=== PATIENT | female | born 1995 ===

== ENCOUNTER 2018-06-26 03:01 | Inpatient (IN) | payer OTHER ==
[2018-06-26 03:34] VITALS: BMI 25.8
[2018-06-26] MEDS ORDERED: Acetaminophen 500 MG TAB PO SCH (04:15)
[2018-06-26 04:17] LABS: Amnisure Internal Control QC ACCEPTABLE (ACCEPTABLE); Amnisure Test RUPTURE DETECTED (No Rupture)
[2018-06-26] MEDS ORDERED: Docusate 100 MG CAP PO PRN (04:22)
[2018-06-26] MEDS ORDERED: Promethazine HCl 25 MG/ML VIAL IM PRN (04:22)
[2018-06-26] MEDS ORDERED: Ondansetron PF 4 MG/2 ML Vial IVP PRN ×2 (04:22→13:27)
[2018-06-26] MEDS ORDERED: Lidocaine 1% (PF) 30 ML VIAL SC PRN (04:27)
[2018-06-26] MEDS ORDERED: NS / Oxytocin 40 units/1000ml 1,000 ML IV PRN (04:27)
[2018-06-26] MEDS ORDERED: Ibuprofen 800 MG TAB PO PRN (04:27)
[2018-06-26] MEDS: Lactated Ringer's 1,000 ML IV SCH ×2 (04:30→12:48)
--- NOTE | 2018-06-26 04:32 | PDOC.FPROB ---
FMR OB H&P: HPI - History of Present Illness Chief Complaint: Leaking of fluid Indentification: 23 year old at 39.2 wks History of Present Illness: 23 year old at 39.2 wks presents with leaking of fluid since 1:27 this AM. She states she was having difficulty sleeping, so she decided to take Hydroxyzine. Just before she was about to doze off, she started to feel fluid leaking out. The fluid was clear and color initially and has since transitioned to a dark brown color. Patient endorses few irregular contractions. She endorses movement, although she does state it is slightly less than normal. she denies vaginal discharge. Patient endorses dull headache currently that has been present since late last night. She has not taken anything for the pain. Patient scheduled for cytotec induction tomorrow afternoon. Primary Care Physician: Shen FMR OB H&P: Current - Care : 1 Para: 0 Gestational age: 39.2 wks Due date: 07/01/2018 Dating Criteria: 1T ultrasound - OB Labs Blood type: A RH: positive Antibody Screen: negative HIV: negative RPR: negative HepBsAg: negative Rubella: immune Gonorrhea: negative Chlamydia: negative Pap Smear: nml 2018 1 hour gtt: 73 GBS: negative FMR OB H&P: History - Past Medical History PMH: Depression - OB History OB History: Initial concern for asymmetric IUGR; however, per patient report repeat ultrasound was fine. - Surgical History Sx History: L5-S1 spinal fusion Breast augmentation Taylor teeth removal - Social History Social History: Denies alcohol, tobacco, or drug use - Family History Family History: HTN mother and father FMR OB H&P: Medications - Current Home Medications: Medication Instructions Recorded Confirmed Type Cyclobenzaprine [Flexeril] 10 mg PO TID PRN 06/26/18 06/26/18 History HYDROcodone Bit/APAP 5/325 [[place] 1 tab PO Q6HR PRN 06/26/18 06/26/18 History 5/325] Vit 108/Iron/Folic AC 1 tablet PO DAILY 06/26/18 06/26/18 History [ One Tablet] Sertraline HCl [Zoloft] 50 mg PO DAILY 06/26/18 06/26/18 History hydrOXYzine Pamoate [Vistaril] 1 cap PO DAILY PRN 06/26/18 06/26/18 History Allergies/Adverse Reactions: Allergies Allergy/AdvReac Type Severity Reaction Status Date / Time oxycodone Allergy Intermediate Short of Verified 06/26/18 03:24 Breath FMR OB H&P: ROS - Review of Systems General: denies: fever/chills, weight/appetite/sleep changes Eyes: denies: vision changes, scotomas ENT: denies: nasal congestion, rhinorrhea, sore throat Cardiovascular: denies: chest pain, palpitation, edema Respiratory: denies: cough, congestion, shortness of breath Gastrointestinal: denies: abdominal pain, nausea, vomiting, diarrhea Genitourinary (Female): reports: polyuria, contractions. denies: incontinence, dysuria, vaginal discharge, vaginal pain, vaginal bleeding, vaginal pressure Musculoskeletal: reports: pain, stiffness Neurologic: denies: syncope, seizures, weakness Integumentary: denies: rash, lesions Hematologic/Lymphatic: denies: prolonged or excessive bleeding Psychological: reports: depression. denies: anxiety FMR OB H&P: Vital Signs - Maternal Vital signs: Vital Signs - First Documented Temp Pulse Resp BP 98.9 F 89 18 134/96 H 06/26/18 03:20 06/26/18 03:20 06/26/18 03:20 06/26/18 03:20 - Heart Tones Baseline: 150 Variability: moderate Acceleration: present Deceleration: absent Category: category 1 [place] contractions every: q3-4 min FMR OB H&P: Physical Exam - Physical Exam General: NAD, awake, alert and oriented HEENT: MMM Neck: supple Heart: RRR General: no respiratory distress Abdomen: soft, gravid, non-tender Musculoskeletal: pulses present Neurological: no tremor, no focal deficit Skin: no rash, capillary refill <2 seconds Lymphatic: no unusual bruising or bleeding Psychiatric: intact recent and remote memory, good judgement and insight, normal mood and affect - Pelvic Exam Vulva: no masses, no lesions, no discharge, no blood SVE: closed/thick/high FMR OB H&P: Results - Labs Lab results: Laboratory Results - last 24 hr 06/26/18 03:47 Amnio Swab Test RUPTURE DETECTED H FMR OB H&P: A/P - Problem List (1) PROM (premature rupture of membranes) Current Visit: Yes Status: Acute Code(s): O42.90 - HAYDER ROM, 7TH0 BETW RUPT & ONST LABR, UNSP WEEKS OF GEST (2) Term Current Visit: Yes Status: Acute Code(s): Z34.80 - ENCOUNTER FOR SUPRVSN OF NORMAL , UNSP TRIMESTER (3) Elevated BP without diagnosis of hypertension Current Visit: Yes Status: Acute Code(s): R03.0 - ELEVATED BLOOD-PRESSURE READING, W/O DIAGNOSIS OF HTN Disposition: Stable. Admit to L&D. 23 year old at 39.2 wks 1. Pre-labor rupture of membranes - At 1:27 AM - Positive amnisure - Admit to L&D for expectant management - Cervical check closed/thick/high - Repeat cervical exam in 2-4 hours; consider augmentation if no change - NST reactive 2. Term sIUP - See plan as above - GBS negative 3. Elevated BP without diagnosis of gHTN or cHTN - Several recorded values >140/90 (none >160/90) - No history of elevated BP during this - Will send for pre-E labs - Continue to monitor BP; initiate BP control for BP >160/90 Discussion: Date/Time: 06/26/18 0430 This H&P was discussed with Dr. Nava who agrees with the above documentation and plan. Signature: Samantha Koenig, PGY-2
[2018-06-26 05:02] LABS: Hemoglobin 10.6 g/dL (12.0-16.0); Mean Corpuscular HGB CONC 33.6 g/dL (32.0-36.0); Mean Corpuscular Hemoglobin 31.4 pg (27.0-31.0); Mean Corpuscular Volume 93.5 fL (78.0-98.0); Mean Platelet Volume 9.5 fL (7.4-10.4); Platelet Count 232 thou/uL (130-400); RBC Distribution Width 11.6 % (11.5-14.5); Red Blood Cell (RBC) Count 3.36 mill/uL (4.20-5.40); White Blood Cell (WBC) Count 9.9 thou/uL (4.8-10.8)
[2018-06-26 05:18] LABS: ALT (SGPT) 11 U/L (8-55); AST (SGOT) 19 U/L (5-34); Albumin 3.5 g/dL (3.5-5.0); Alkaline Phosphatase 120 U/L (40-150); Anion Gap 14 mmol/L (10-20); BUN (Urea Nitrogen) 12 mg/dL (7.0-18.7); Bilirubin, Total 0.5 mg/dL (0.2-1.2); Calc. Creatinine Clearance 116 mL/min (70-130); Calcium 9.1 mg/dL (7.8-10.44); Carbon Dioxide 19 mmol/L (22-29); Chloride 105 mmol/L (98-107); Estimated GFR-MDRD Greater than 90; Glucose 81 mg/dL (70-105); Potassium 4.4 mmol/L (3.5-5.1); Protein, Total 6.5 g/dL (6.0-8.3); Sodium 134 mmol/L (136-145)
[2018-06-26 05:36] LABS: HBSAg Index 0.19 S/CO (0-0.99); Hep B Surf Ag Non-Reactive S/CO (NonReactive); Syphilis Antibody Nonreactive (Nonreactive); Syphilis Antibody Index 0.02 S/CO (<1.00 Non-Reactive)
[2018-06-26 05:49] LABS: Creatinine, Urine 92.39 mg/dL (47-110)
--- NOTE | 2018-06-26 06:59 | PDOC.EVN ---
Event Note - Event Note Event Note: SROM since 1:30 AM. Patient with irregular contractions. Closed/thick/high at last check. Spoke to Dr. Gotti, plan to recheck and augment labor with pitocin. BP has been elevated. Pre-E labs negative. Continue to monitor BP. Samantha Koenig, DO PGY-2
[2018-06-26] MEDS: NS w/ Oxytocin 10 units 500 ML IV SCH ×2 (07:18→22:31)
[2018-06-26] MEDS: Dextrose 5%-Lactated Ringers 1,000 ML IV SCH ×2 (08:14→19:46)
[2018-06-26] MEDS: Fentanyl 100 MCG/2 ML VIAL SLOW IVP SCH ×5 (08:23→13:33)
[2018-06-26] MEDS ORDERED: Bupivacaine/Epinephrine 0.25% 30 ML VIAL ONE (09:00)
[2018-06-26] MEDS ORDERED: Lidocaine 2% MPF 10 ML AMP (For Epidural Use) ONE (09:00)
[2018-06-26] MEDS: Misoprostol 100 MCG TAB PO PRN ×3 (09:38→16:32)
[2018-06-26] MEDS ORDERED: Oxytocin 10 UNITS/ML VIAL ONE ×2 (11:00→11:44)
[2018-06-26] MEDS ORDERED: Fentanyl 4 mcg/Bup 0.1% Cadd 100 ML ONE ×2 (12:35→19:52)
[2018-06-26] MEDS ORDERED: Fentanyl 100 MCG/2 ML VIAL ONE (13:14)
[2018-06-26] MEDS ORDERED: Lactated Ringer's 500 ML IV PRN (13:27)
[2018-06-26] MEDS ORDERED: ePHEDrine/0.9% NaCl/PF SYRINGE 50 mg/10 ml SLOW IVP PRN (13:27)
[2018-06-26] MEDS ORDERED: Naloxone HCl 0.4 mg/ml Vial IVP PRN ×2 (13:27)
[2018-06-26] MEDS ORDERED: Eucerin (Mineral Oil/Petrolatum,White) 30 gm Jar TOP PRN (13:27)
[2018-06-26] MEDS ORDERED: Communication Order-Pharmacy FS SCH (13:30)
[2018-06-26] MEDS: diphenhydrAMINE 50 MG/ML VIAL IVP PRN ×3 (15:32→22:31)
[2018-06-26] MEDS: Fentanyl 4 mcg/Bupivacaine 0.1% Cassette 100 ML EPIDURAL SCH (19:53)
[2018-06-27] MEDS: diphenhydrAMINE 50 MG/ML VIAL IVP PRN ×2 (02:04→05:07)
[2018-06-27] MEDS ORDERED: Fentanyl 4 mcg/Bup 0.1% Cadd 100 ML ONE ×2 (02:19→08:31)
[2018-06-27] MEDS: Fentanyl 4 mcg/Bupivacaine 0.1% Cassette 100 ML EPIDURAL SCH ×2 (02:39→08:56)
[2018-06-27] MEDS ORDERED: Bicitra 30 ML UDCUP ONE (08:57)
[2018-06-27] MEDS ORDERED: CEFAZOLIN 2 GM/50 ML BAG ONE (08:58)
[2018-06-27] MEDS ORDERED: PHENYLEPHRINE-NS 100 MCG/ML 10 ML SYRINGE ONE (09:05)
[2018-06-27] MEDS ORDERED: Morphine PF 1 MG/ML SYR ONE (09:05)
[2018-06-27] MEDS ORDERED: ePHEDrine/0.9% NaCl/PF SYRINGE 50 mg/10 ml ONE (09:05)
[2018-06-27] MEDS ORDERED: Ondansetron PF 4 MG/2 ML Vial ONE ×3 (09:05→14:53)
[2018-06-27] MEDS ORDERED: Oxytocin 10 UNITS/ML VIAL ONE (09:05)
[2018-06-27] MEDS ORDERED: Lidocaine 2% MPF 10 ML AMP (For Epidural Use) ONE (09:05)
[2018-06-27] MEDS ORDERED: Ketorolac Tromethamine 30 MG/ML VIAL ONE ×2 (09:05→14:53)
[2018-06-27] MEDS ORDERED: PROPOFOL 0 ML ONE (09:06)
[2018-06-27] MEDS ORDERED: Succinylcholine Chloride 20 MG/ML 10 ml SYRINGE FS ONE (09:06)
[2018-06-27] MEDS ORDERED: Fentanyl 100 MCG/2 ML VIAL ONE (09:29)
[2018-06-27] MEDS ORDERED: Ondansetron PF 4 MG/2 ML Vial IVP PRN ×2 (09:38→12:17)
[2018-06-27] MEDS ORDERED: Naloxone HCl 0.4 mg/ml Vial IVP PRN ×2 (09:38)
[2018-06-27] MEDS ORDERED: Promethazine HCl 25 MG SUPP PR PRN (09:38)
[2018-06-27] MEDS ORDERED: Naloxone HCl 0.4 mg/ml Vial IV PRN (09:38)
[2018-06-27] MEDS ORDERED: diphenhydrAMINE 50 MG/ML VIAL IVP PRN (09:38)
[2018-06-27] MEDS ORDERED: Eucerin (Mineral Oil/Petrolatum,White) 30 gm Jar TOP PRN (09:38)
[2018-06-27] MEDS ORDERED: Ondansetron HCl/PF 4 MG/2 ML Vial IVP PRN (09:38)
[2018-06-27] MEDS ORDERED: Promethazine HCl 25 MG/ML VIAL IM PRN (09:38)
[2018-06-27] MEDS ORDERED: Acetaminophen 1,000 MG in Premix Bag 1 BAG IVPB PRN (09:40)
[2018-06-27] MEDS ORDERED: Communication Order-Pharmacy FS SCH (09:45)
[2018-06-27 09:46] LABS: Actual Bicarbonate (HCO3a) 25.1 mEq/L (22-28)
[2018-06-27 09:49] LABS: Actual Bicarbonate (HCO3v) 22 mEq/L (22-28); Base Excess -4.9 mEq/L (-2.0 to +3.0); pH (Cord, venous) 7.29 (7.32-7.43)
[2018-06-27] MEDS ORDERED: NS / Oxytocin 40 units/1000ml 1,000 ML IV SCH (12:17)
[2018-06-27] MEDS ORDERED: diphenhydrAMINE 25 MG CAP PO PRN (12:17)
[2018-06-27] MEDS ORDERED: Lanolin Ointment 7 GM TUBE TOP PRN (12:17)
[2018-06-27] MEDS ORDERED: Simethicone Chewable 80 MG TAB PO PRN (12:17)
[2018-06-27] MEDS ORDERED: Meperidine HCl/PF 25 MG/ML VIAL IM PRN (12:17)
[2018-06-27] MEDS ORDERED: Lactated Ringer's 1,000 ML IV SCH (12:17)
[2018-06-27] MEDS ORDERED: Bisacodyl 10 MG SUPP PR PRN (12:17)
[2018-06-27] MEDS ORDERED: HYDROcodone/Acetaminophen 5/325 mg Tablet PO PRN (12:17)
[2018-06-27] MEDS: Ibuprofen 800 MG TAB PO SCH (21:19)
[2018-06-27] MEDS: Docusate Calcium (SURFAK) 240 MG CAP PO SCH (21:20)
[2018-06-27] MEDS: HYDROcodone/Acetaminophen 5/325 mg Tablet PO PRN (21:32)
[2018-06-27] MEDS: Ferrous Sulfate 325 MG TAB PO SCH (21:33)
[2018-06-28] MEDS: HYDROcodone/Acetaminophen 5/325 mg Tablet PO PRN ×3 (01:19→13:04)
[2018-06-28] MEDS: Ibuprofen 800 MG TAB PO SCH ×3 (01:29→12:56)
[2018-06-28] MEDS: Ketorolac Tromethamine 30 MG/ML VIAL IVP SCH ×4 (01:39→13:05)
[2018-06-28 06:42] LABS: Hemoglobin 6.9 g/dL (12.0-16.0); Mean Corpuscular Hemoglobin 30.8 pg (27.0-31.0); Mean Corpuscular Volume 96.2 fL (78.0-98.0); Mean Platelet Volume 8.8 fL (7.4-10.4); Platelet Count 200 thou/uL (130-400); RBC Distribution Width 11.9 % (11.5-14.5); Red Blood Cell (RBC) Count 2.25 mill/uL (4.20-5.40); White Blood Cell (WBC) Count 13.7 thou/uL (4.8-10.8)
[2018-06-28] MEDS ORDERED: Prenatal Vitamin 1 TAB PO SCH (09:00)
[2018-06-28] MEDS: Docusate Calcium (SURFAK) 240 MG CAP PO SCH (09:06)
--- NOTE | 2018-06-28 09:34 | OP ---
DATE OF PROCEDURE: 06/27/2018 PREOPERATIVE DIAGNOSIS: Nonreassuring status. POSTOPERATIVE DIAGNOSIS: Nonreassuring status. PROCEDURE PERFORMED: Primary low cervical transverse section. SURGEON: Ry Gotti M.D. ANESTHESIA: Epidural. DESCRIPTION OF EVENTS: After informed consent was obtained from the patient, her epidural was re-bolused in the patient's room and she was transferred to the operating room. She was then prepped and draped in a sterile fashion, although I did not wait 3 minutes as I normally would. A Pfannenstiel incision was created with a #10 scalpel blade and carried down to the fascia. Fascia was nicked in the midline and the fascial incision extended transversely with Bagley scissors. The superior fascial segment was grasped with Kochers and elevated and the underlying rectus muscles were dissected free with the Bagley scissors. This was repeated with the inferior fascial segment. The rectus muscles were divided in the midline with blunt dissection. The peritoneum was entered bluntly. Bladder blade was inserted. The uterus was entered in a low transverse fashion with a clean #10 scalpel blade. The hysterotomy was extended superolaterally with blunt dissection. Lightly stained meconium amniotic fluid was encountered. vertex was delivered onto the operative field within 1 minute of incision. Oropharynx and nares was bulb suctioned and the handed off to the staff in attendance. Cord ABGs were obtained. Cord blood was obtained. The placenta was manually extracted. The uterus was exteriorized and freed of clots and debris. The uterus was repaired with a running locking suture of 0 Vicryl in a single full-thickness layer followed by a series of interrupted [id number] sutures also of 0 Vicryl for hemostasis which was achieved. The abdomen was copiously irrigated with saline. The uterus was returned to the abdomen. Hemostasis was again observed. The peritoneum was closed with a running suture of 3-0 Vicryl. Three interrupted sutures of 3-0 Vicryl were placed in the subdermal layer to reapproximate the skin which was closed with skin tashi. Sponge, needle, and instrument counts were correct x4. She tolerated the procedure well and suffered no acute complications. She was taken to recovery in stable condition. The is in NICU in stable condition. FINDINGS: Viable male infant, Apgars 3 and 7 at 1 and 5 minutes, respectively. Umbilical artery pH 7.17 and umbilical vein pH 7.29. COMPLICATIONS: None. SPECIMENS: None. QUANTITATIVE BLOOD LOSS: 871 mL. MTDD
[2018-06-28] MEDS: Ferrous Sulfate 325 MG TAB PO SCH (10:33)
[2018-06-28] MEDS: Dextrose 5%-Lactated Ringers 1,000 ML IV SCH (10:39)
[2018-06-28 11:38] VITALS: BP 111/68; TEMP 98.1
== END 2018-06-28 16:00 | disposition home or self-care (01) | DRG 788 ==
LOC: L&D/OP 03:01 → L&D 04:55 → 3SW 06-27 11:55
PROVIDERS: ADMIT Family Medicine; ATTEND Family Medicine
PROC: 10D00Z1 Extraction of Products of Conception, Low, Open Approach (ICD-10-PCS; principal; 2018-06-27)
DX: O42.02 Full-term premature rupture of membranes, onset of labor within 24 hours of rupture (principal); O77.9 Labor and delivery complicated by fetal stress, unspecified; O77.0 Labor and delivery complicated by meconium in amniotic fluid; Z3A.39 39 weeks gestation of pregnancy; Z37.0 Single live birth
CPT/HCPCS: 36415; 51702; 59025; 80053; 82570; 82805; 84112; 84156; 85027; 86780; 86850; 86900; 86901; 87340; 88307; 99285; J0131; J1200; J1885; J2001; J2274; J2405; J2590; J2704; J3010